=== PATIENT | male | born 1965 | race Caucasian/White ===

== ENCOUNTER 2016-06-12 17:05 | Emergency (ER) | payer OTHER ==
[~2016-06-12] VITALS: Ht 180.3 cm; Wt 107.0 kg
[~2016-06-12 17:05] MED LIST: CITA20 PO; LEXA5TAB PO; NAPR500 PO; RISP1 PO; RISP3 PO
[2016-06-12] MEDS ORDERED: HALOPERIDOL LACTATE 5 MG/ML AMP ONE (17:23)
[2016-06-12] MEDS ORDERED: HALOPERIDOL LACTATE 5 MG/ML AMP IM ONE (17:30)
[2016-06-12] MEDS ORDERED: LORazepam 2 MG/ML VIAL IM ONE (17:30)
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
[2016-06-12 18:19] VITALS: BP 96/55; PULSE 97; RESP 18; TEMP 98; O2SAT 94
[2016-06-12] MEDS ORDERED: diphenhydrAMINE HCL 50 MG/ML VIAL IM ONE (18:30)
[2016-06-12 19:09] LABS: AMPHETAMINE, URINE NEG (NEG); BARBITURATES, URINE NEG (NEG); COCAINE, URINE POS (NEG)
--- NOTE | 2016-06-12 19:18 | RADRPT ---
EXAM DATE/TIME: 06/12/2016 18:49 [facility] COMPARISON: CT BRAIN W/O CONTRAST, April 30, 2015, 22:58. INDICATIONS : Trauma; contusion. RADIATION DOSE: 39.37 CTDIvol (mGy) MEDICAL HISTORY : Drug abuse. SURGICAL HISTORY : None. ENCOUNTER: Initial ACUITY: 1 day PAIN SCALE: 4/10 LOCATION: cranial TECHNIQUE: Multiple contiguous axial images were obtained of the head. Using automated exposure control and adj ustment of the mA and/or kV according to patient size, radiation dose was kept as low as reasonably a chievable to obtain optimal diagnostic quality images. FINDINGS: CEREBRUM: The ventricles are normal for age. No evidence of midline shift, mass lesion, hemorrhage or acute in farction. No extra-axial fluid collections are seen. POSTERIOR FOSSA: The cerebellum and brainstem are intact. The 4th ventricle is midline. The cerebellopontine angle i s unremarkable. EXTRACRANIAL: Mucoperiosteal thickening seen diffusely of the visualized paranasal sinuses, worse. There is a nonac crow fracture of the nose, deviated towards the right. SKULL: The calvaria is intact. No evidence of skull fracture. CONCLUSION: No bleed or other acute intracranial abnormality. Worsening chronic sinusitis. Old nose fracture. Christopher Whalen MD on June 12, 2016 at 19:14 Board Certified Radiologist. This report was verified electronically.
--- NOTE | 2016-06-12 19:22 | RADRPT ---
EXAM DATE/TIME: 06/12/2016 18:49 [facility] COMPARISON: CT CERVICAL SPINE W/O CONTRAST, October 06, 2014, 4:56. INDICATIONS : Trauma; contusion. RADIATION DOSE: 22.34 CTDIvol (mGy) MEDICAL HISTORY : Drug abuse. SURGICAL HISTORY : None. ENCOUNTER: Initial ACUITY: 1 day PAIN SCALE: 3/10 LOCATION: Bilateral neck TECHNIQUE: Volumetric scanning of the cervical spine was performed. Multiplanar reconstructions in the sagittal, coronal and oblique axial planes were performed. Using automated exposure control and adjustment o f the mA and/or kV according to patient size, radiation dose was kept as low as reasonably achievable to obtain optimal diagnostic quality images. FINDINGS: Cervical spine alignment within normal limits. Vertebral bodies have normal height. No cortical break or trabecular disruption. Moderate disc space narrowing with posterior disc osteophyte complex and uncovertebral/facet osteoart hritis again seen at C5/C6 and C6/C7. There is associated foraminal stenosis, mainly on the right at C5/C6. There are mild degenerative changes at the other levels. Juxtavertebral soft tissues are within normal limits. CONCLUSION: No fracture or subluxation of the cervical spine. Degenerative changes are again noted. Please see ab will. Christopher Whalen MD on June 12, 2016 at 19:17 Board Certified Radiologist. This report was verified electronically.
[2016-06-12 19:36] VITALS: BP 103/60; PULSE 68; RESP 18; O2SAT 98
== END 2016-06-12 19:54 ==
LOC: NEPD 17:05
DX: S00.03XA Contusion of scalp, initial encounter (principal); F10.120 Alcohol abuse with intoxication, uncomplicated; F17.200 Nicotine dependence, unspecified, uncomplicated; Z86.59 Personal history of other mental and behavioral disorders; Z86.79 Personal history of other diseases of the circulatory system; Z87.39 Personal history of other diseases of the musculoskeletal system and connective tissue; W22.8XXA Striking against or struck by other objects, initial encounter
CPT/HCPCS: 70450; 72125; 80307; 96372; 99285; J1630

== ENCOUNTER 2017-05-28 23:14 | Emergency (ER) | payer OTHER ==
[~2017-05-28] VITALS: Ht 170.2 cm; Wt 90.0 kg
[2017-05-28 23:25] VITALS: BP 126/64; PULSE 97; RESP 18; TEMP 98.1; O2SAT 96
[2017-05-28] MEDS ORDERED: LEXA10TA PO (23:29)
[2017-05-28] MEDS ORDERED: LEXA5TAB PO (23:29)
[2017-05-28] MEDS ORDERED: RISP1 (23:29)
--- NOTE | 2017-05-29 00:22 | PD ---
HPI . Scanlon Act Chief Complaint: OD/ Ingestion Time Seen by Provider: 23:59 Travel History International Travel<30 days: No Contact w/Intl Traveler<30days: No Traveled to known affect area: No History of Present Illness HPI He took an insignificant amount of Lexapro and Risperdal. He reports that he was trying to kill himself because his girlfriend is in retirement and he cannot visit her. He has a history of drug induced mood disorder. PFSH Past Medical History Hx Anticoagulant Therapy: No Autoimmune Disease: No Bipolar Disorder: Yes Depression: Yes Heart Rhythm Problems: Yes Cardiovascular Problems: No Chemotherapy: No Cerebrovascular Accident: No Diabetes: No Endocrine: No Genitourinary: No Herniated Disk: Yes Immune Disorder: No Musculoskeletal: Yes (BACK AND NECK PROBLEMS) Neurologic: No Psychiatric: Yes Reproductive: No Respiratory: No Immunizations Current: Yes Tetanus Vaccination: Unknown Influenza Vaccination: No Past Surgical History AICD: No Arteriovenous Shunt: No Insulin Pump: No Joint Replacement: No Pacemaker: No Social History Alcohol Use: Yes (4-8 (tall boys) every 2-3 days.) Tobacco Use: Yes (1/2 -1 PACK DAILY) Substance Use: Yes (CRACK) Allergies-Medications (Allergen,Severity, Reaction): Coded Allergies: diatrizoate meglumine (Unverified Allergy, Intermediate, SOB, 09/26/16) gadobenic acid (Unverified Allergy, Intermediate, SOB, 09/26/16) gadodiamide (Unverified Allergy, Intermediate, SOB, 09/26/16) gadoteridol (Unverified Allergy, Intermediate, SOB, 09/26/16) iodixanol (Unverified Allergy, Intermediate, SOB, 09/26/16) iohexol (Unverified Allergy, Intermediate, SOB, 09/26/16) Reported Meds & Prescriptions Reported Meds & Active Scripts Active Reported Risperdal (Risperidone) 1 Mg Tab 1 Mg DAILY Lexapro (Escitalopram Oxalate) 5 Mg Tab 5 Mg PO DAILY Physical Exam Narrative GENERAL: Awake and alert and in no acute distress. SKIN: Warm and dry. HEAD: Normocephalic/atraumatic. EYES: Pupils are equal. Extraocular movements are intact. NECK: Normal range of motion. CARDIOVASCULAR: Regular rate and rhythm. RESPIRATORY: Nonlabored respirations. MUSCULOSKELETAL: Atraumatic. NEUROLOGICAL: Nonfocal. PSYCHIATRIC: He is very jovial for someone suicidal ideation. Data Data Last Documented VS Vital Signs Date Time Temp Pulse Resp B/P (MAP) Pulse Ox O2 Delivery O2 Flow Rate FiO2 05/28/17 23:25 98.1 97 18 126/64 (84) 96 Room Air Orders Orders Complete Blood Count With Diff (05/29/17 00:01) Comprehensive Metabolic Panel (05/29/17 00:01) Thyroid Stimulating Hormone (05/29/17 00:01) Cath For Specimen (05/29/17 00:01) Psych Screen (05/29/17 00:01) Drug Screen, Random Urine (05/29/17 00:01) Labs Laboratory Tests Test 05/29/17 00:17 White Blood Count 8.3 TH/MM3 Red Blood Count 4.81 MIL/MM3 Hemoglobin 15.4 GM/DL Hematocrit 45.3 % Mean Corpuscular Volume 94.3 FL Mean Corpuscular Hemoglobin 32.1 PG Mean Corpuscular Hemoglobin Concent 34.0 % Red Cell Distribution Width 13.6 % Platelet Count 230 TH/MM3 Mean Platelet Volume 7.0 FL Neutrophils (%) (Auto) 61.6 % Lymphocytes (%) (Auto) 30.3 % Monocytes (%) (Auto) 6.4 % Eosinophils (%) (Auto) 1.3 % Basophils (%) (Auto) 0.4 % Neutrophils # (Auto) 5.1 TH/MM3 Lymphocytes # (Auto) 2.5 TH/MM3 Monocytes # (Auto) 0.5 TH/MM3 Eosinophils # (Auto) 0.1 TH/MM3 Basophils # (Auto) 0.0 TH/MM3 CBC Comment DIFF FINAL Differential Comment Blood Urea Nitrogen 5 MG/DL Creatinine 0.72 MG/DL Random Glucose 101 MG/DL Total Protein 6.9 GM/DL Albumin 3.4 GM/DL Calcium Level 8.1 MG/DL Alkaline Phosphatase 72 U/L Aspartate Amino Transf (AST/SGOT) 19 U/L Alanine Aminotransferase (ALT/SGPT) 24 U/L Total Bilirubin 0.2 MG/DL Sodium Level 141 MEQ/L Potassium Level 3.2 MEQ/L Chloride Level 108 MEQ/L Carbon Dioxide Level 22.3 MEQ/L Anion Gap 11 MEQ/L Estimat Glomerular Filtration Rate 115 ML/MIN Thyroid Stimulating Hormone 3rd Gen 1.180 uIU/ML Urine Opiates Screen NEG Urine Barbiturates Screen NEG Urine Amphetamines Screen NEG Urine Benzodiazepines Screen NEG Urine Cocaine Screen POS Urine Cannabinoids Screen NEG MDM Medical Decision Making Medical Screen Exam Complete: Yes Emergency Medical Condition: Yes Medical Record Reviewed: Yes (Medical history of substance induced mood disorder.) Differential Diagnosis Differential diagnosis includes but is not limited to depression with suicidal gesture, suicide attempt, suicidal ideation, attention seeking behavior. Narrative Course This patient presents to us as a Scanlon Act following and insignificant suicide attempt. Medical clearance exam is in process. CBC & BMP Diagram 05/29/17 00:17 Total Protein 6.9, Albumin 3.4, Calcium Level 8.1 L, Alkaline Phosphatase 72, Aspartate Amino Transf (AST/SGOT) 19, Alanine Aminotransferase (ALT/SGPT) 24, Total Bilirubin 0.2 Drug screen is positive for cocaine Diagnosis Primary Impression: Cocaine use Additional Impressions: Medical clearance for psychiatric admission Hypokalemia Condition: Stable Keely Arizmendi MD May 29, 2017 00:22
[2017-05-29 01:03] LABS: AUTOMATED NEUTROPHIL # 5.1 TH/MM3 (1.8-7.7); BASOPHIL % 0.4 % (0.0-2.0); EOSINOPHIL # 0.1 TH/MM3 (0-0.4); EOSINOPHIL % 1.3 % (0.0-4.0); HEMATOCRIT 45.3 % (39.0-51.0); HEMOGLOBIN 15.4 GM/DL (13.0-17.0); LYMPH % 30.3 % (9.0-44.0); LYMPHOCYTE # 2.5 TH/MM3 (1.0-4.8); MEAN CELL VOLUME 94.3 FL (80.0-100.0); MEAN CORPUSCULAR HEMOGLOBIN 32.1 PG (27.0-34.0); MONO % 6.4 % (0.0-8.0); MONOCYTE # 0.5 TH/MM3 (0-0.9); NEUT % 61.6 % (16.0-70.0); PLATELET COUNT 230 TH/MM3 (150-450); RED BLOOD COUNT 4.81 MIL/MM3 (4.50-5.90); RED CELL DISTRIBUTION WIDTH 13.6 % (11.6-17.2); WHITE BLOOD COUNT 8.3 TH/MM3 (4.0-11.0)
[2017-05-29 01:58] LABS: ALBUMIN 3.4 GM/DL (3.4-5.0); ALKALINE PHOSPHATASE 72 U/L (45-117); ALT (GPT) 24 U/L (12-78); AST (GOT) 19 U/L (15-37); BLOOD UREA NITROGEN 5 MG/DL (7-18); CALCIUM 8.1 MG/DL (8.5-10.1); CREATININE 0.72 MG/DL (0.60-1.30); GLOMERULAR FILTRATION RATE 115 ML/MIN (>89); GLUCOSE,RANDOM 101 MG/DL (74-106); TOTAL BILIRUBIN ADULT 0.2 MG/DL (0.2-1.0); TOTAL PROTEIN 6.9 GM/DL (6.4-8.2)
[2017-05-29 01:59] LABS: BICARBONATE 22.3 MEQ/L (21.0-32.0); CHLORIDE 108 MEQ/L (98-107); SODIUM (NA) 141 MEQ/L (136-145)
[2017-05-29] MEDS ORDERED: POTASSIUM CHLORIDE 20 MEQ CONTROLLED RELEASE TAB PO ONE (02:15)
[2017-05-29 02:27] VITALS: BP 118/78; PULSE 79; RESP 18; O2SAT 99
[2017-05-29 04:45] VITALS: BP 135/70; PULSE 78; RESP 16; O2SAT 98
[2017-05-29 07:48] VITALS: BP 116/72; PULSE 82; RESP 18; TEMP 98; O2SAT 97
[2017-05-29 17:35] VITALS: BP 118/85; PULSE 56; RESP 18; TEMP 97.2; O2SAT 98
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
--- NOTE | 2017-05-29 18:40 | PD ---
Physical Exam Time Seen by Provider: 18:38 RACHEAL Killian has evaluated patient, lifted the Scanlon act and cleared the patient for discharge. Data Data Last Documented VS Vital Signs Date Time Temp Pulse Resp B/P (MAP) Pulse Ox O2 Delivery O2 Flow Rate FiO2 05/29/17 10:40 05/29/17 07:48 98.0 82 18 97 Room Air Orders Orders Complete Blood Count With Diff (05/29/17 00:01) Comprehensive Metabolic Panel (05/29/17 00:01) Thyroid Stimulating Hormone (05/29/17 00:01) Cath For Specimen (05/29/17 00:01) Psych Screen (05/29/17 00:01) Drug Screen, Random Urine (05/29/17 00:01) Potassium Chloride (Kcl) (05/29/17 02:15) Diet Regular Basic (05/29/17 Breakfast) Diet Regular Basic (05/29/17 Lunch) Diet Regular Basic (05/29/17 Dinner) Labs Laboratory Tests Test 05/29/17 00:17 White Blood Count 8.3 TH/MM3 Red Blood Count 4.81 MIL/MM3 Hemoglobin 15.4 GM/DL Hematocrit 45.3 % Mean Corpuscular Volume 94.3 FL Mean Corpuscular Hemoglobin 32.1 PG Mean Corpuscular Hemoglobin Concent 34.0 % Red Cell Distribution Width 13.6 % Platelet Count 230 TH/MM3 Mean Platelet Volume 7.0 FL Neutrophils (%) (Auto) 61.6 % Lymphocytes (%) (Auto) 30.3 % Monocytes (%) (Auto) 6.4 % Eosinophils (%) (Auto) 1.3 % Basophils (%) (Auto) 0.4 % Neutrophils # (Auto) 5.1 TH/MM3 Lymphocytes # (Auto) 2.5 TH/MM3 Monocytes # (Auto) 0.5 TH/MM3 Eosinophils # (Auto) 0.1 TH/MM3 Basophils # (Auto) 0.0 TH/MM3 CBC Comment DIFF FINAL Differential Comment Blood Urea Nitrogen 5 MG/DL Creatinine 0.72 MG/DL Random Glucose 101 MG/DL Total Protein 6.9 GM/DL Albumin 3.4 GM/DL Calcium Level 8.1 MG/DL Alkaline Phosphatase 72 U/L Aspartate Amino Transf (AST/SGOT) 19 U/L Alanine Aminotransferase (ALT/SGPT) 24 U/L Total Bilirubin 0.2 MG/DL Sodium Level 141 MEQ/L Potassium Level 3.2 MEQ/L Chloride Level 108 MEQ/L Carbon Dioxide Level 22.3 MEQ/L Anion Gap 11 MEQ/L Estimat Glomerular Filtration Rate 115 ML/MIN Thyroid Stimulating Hormone 3rd Gen 1.180 uIU/ML Urine Opiates Screen NEG Urine Barbiturates Screen NEG Urine Amphetamines Screen NEG Urine Benzodiazepines Screen NEG Urine Cocaine Screen POS Urine Cannabinoids Screen NEG MDM Supervised Visit with GILDARDO: No Narrative Course RACHEAL Uribe has evaluated patient, lifted the Scanlon act and cleared the patient for discharge. Patient contracts safety. Denies suicidal or homicidal ideations. Patient will be provided community resource packet to [facility] for follow-up. Has friends and family for support. Patient was medically cleared by alternate provider prior to psych screening. Patient has been evaluated by psychiatry and and is now cleared for discharge. Diagnosis Primary Impression: Cocaine use Additional Impressions: Drug-induced mood disorder Hypokalemia Referrals: [facility] (Out patient) [facility] Primary Care Physician Psychiatrist Daniela CAMEJO Behavioral Patient Instructions: Cocaine Abuse (ED), General Instructions, Mood Disorders (ED), Polysubstance Abuse (ED) Additional Instruction: Contract safety to your self and others Follow-up with psychiatry Follow-up with primary care provider Follow-up with Darrion Doyle Return to the emergency department immediately with worsening of symptoms Med/Other Pt SpecificInfo: No Change to Meds, No Meds Exist/No RX given Disposition: 01 DISCHARGE HOME Condition: Stable Nicole Downs May 29, 2017 18:40
== END 2017-05-29 18:50 | disposition home or self-care (01) ==
LOC: NEPE 23:14 → NEPJ 05-29 18:50
DX: F14.94 Cocaine use, unspecified with cocaine-induced mood disorder (principal); E87.6 Hypokalemia; F31.9 Bipolar disorder, unspecified; F17.210 Nicotine dependence, cigarettes, uncomplicated
CPT/HCPCS: 80053; 80307; 84443; 85025; 99283

== ENCOUNTER 2017-07-15 20:19 | Emergency (ER) | payer SELFPAY ==
[~2017-07-15 20:19] MED LIST changes: -CITA20 PO; -NAPR500 PO; +RISP1; -RISP1 PO; -RISP3 PO
[2017-07-15 20:31] VITALS: BP 111/68; PULSE 96; RESP 20; TEMP 98; O2SAT 95
--- NOTE | 2017-07-15 21:01 | PD ---
HPI Chief Complaint: Cold / Flu Symptoms Time Seen by Provider: 20:31 Travel History International Travel<30 days: No Contact w/Intl Traveler<30days: No Traveled to known affect area: No History of Present Illness HPI The patient is a 52 year old male who presents to the [facility] emergency department with a history of cough and congestion that is been present for the last 3-4 weeks. He reports that his cough has been productive of yellow sputum. The patient is brought in by ambulance services reporting chest pain. The patient reports that the pain is in the center of his chest over sternum. The patient began to complain of chest pain when he was placed under arrest prior to arrival. The patient in route to this facility was belligerent and apparently spitting at the police officer booking as well as the paramedics that responded to the call. The patient on arrival has a mask over his face because he continues to spit regularly. He is also belligerent, cursing at the staff on my arrival to the room. The patient reports that he has been experiencing a subjective fever and chills. He denies having any shortness of breath. The patient's history and review of systems are somewhat limited due to his agitation and uncooperative state. The patient's other history is obtained from reviewing the electronic medical record. [facility] Past Medical History Narrative Medical The patient's past medical history is significant for bipolar disorder, schizophrenia, chronic neck and back pain. Hx Anticoagulant Therapy: No Autoimmune Disease: No Bipolar Disorder: Yes Depression: Yes Heart Rhythm Problems: Yes Cardiovascular Problems: No Chemotherapy: No Cerebrovascular Accident: No Diabetes: No Endocrine: No Genitourinary: No Herniated Disk: Yes Immune Disorder: No Musculoskeletal: Yes (BACK AND NECK PROBLEMS) Neurologic: No Psychiatric: Yes Reproductive: No Respiratory: No Immunizations Current: Yes Past Surgical History Narrative Surgical The patient's past surgical history is significant for a circumcision AICD: No Arteriovenous Shunt: No Insulin Pump: No Joint Replacement: No Pacemaker: No Social History Alcohol Use: Yes (10-15 beers per week) Tobacco Use: Yes (1/2 -1 PACK DAILY) Substance Use: Yes (1 ppd cigarettes, 60 oz. beer every other day, crack 2x/ week) Allergies-Medications (Allergen,Severity, Reaction): Coded Allergies: diatrizoate meglumine (Unverified Allergy, Intermediate, SOB, 8/15/17) gadobenic acid (Unverified Allergy, Intermediate, SOB, 09/26/16) gadodiamide (Unverified Allergy, Intermediate, SOB, 09/26/16) gadoteridol (Unverified Allergy, Intermediate, SOB, 09/26/16) iodixanol (Unverified Allergy, Intermediate, SOB, 09/26/16) iohexol (Unverified Allergy, Intermediate, SOB, 09/26/16) Reported Meds & Prescriptions Reported Meds & Active Scripts Active Cefuroxime (Cefuroxime Axetil) 500 Mg Tab 500 Mg PO BID 10 Days Reported Risperdal (Risperidone) 1 Mg Tab 1 Mg DAILY Lexapro (Escitalopram Oxalate) 5 Mg Tab 5 Mg PO DAILY Review of Systems Except as stated in HPI: all other systems reviewed are Neg General / Constitutional: No: Fever Eyes: No: Visual changes HENT: Positive: Rhinorrhea, Congestion, No: Headaches Cardiovascular: Positive: Chest Pain or Discomfort, No: Dyspnea on exertion Respiratory: Positive: Cough, No: Shortness of Breath Gastrointestinal: No: Nausea, Vomiting, Diarrhea, Abdominal Pain Genitourinary: No: Dysuria Musculoskeletal: No: Pain Skin: No Rash Neurologic: No: Weakness, Focal Abnormalities, Change in Mentation, Slurred Speech, Sensory Disturbance Psychiatric: No: Depression Endocrine: No: Polydipsia Hematologic/Lymphatic: No: Easy Bruising Physical Exam Narrative General: The patient is a well-developed well-nourished male in no acute distress. The patient has a mask on and repeatedly keeps spitting into the mask. Patient's sputum appears to be clear. Head and Neck exam: Head is normocephalic atraumatic. Eyes: EOMI, pupils are equal round and reactive to light. Nose: Midline septum with pink mucous membranes Mouth: Dentition unremarkable. Moist mucus membranes. Posterior oropharynx is not erythematous. No tonsillar hypertrophy. Uvula midline. Airway patent. Neck: No palpable lymphadenopathy. No nuchal rigidity. No thyromegaly. Cardiovascular: Regular rate and rhythm without murmurs, gallops, or rubs. No pulse deficit to the extremities on simultaneous auscultation and palpation of his radial artery. The patient reports having chest wall tenderness on palpation along the sternal borders. There is no crepitus or step-off. No erythema or ecchymosis. Lungs: Clear to auscultation bilaterally. No wheezes, rhonchi, or rales. Abdomen: Soft, without tenderness to palpation in all 4 quadrants of the abdomen. No guarding, rebound, or rigidity. Normal bowel sounds are audible. No tenderness on palpation of McBurney's point. Negative Soto sign. Extremities: No clubbing, cyanosis, or edema. 2+ pulses in all 4 extremities. No calf tenderness on palpation. Back: No spinous process tenderness to palpation. No costovertebral angle tenderness to palpation. Neurologic Exam: Grossly nonfocal. Skin Exam: No rash noted. Intact skin that is warm and dry. Data Data Last Documented VS Vital Signs Date Time Temp Pulse Resp B/P (MAP) Pulse Ox O2 Delivery O2 Flow Rate FiO2 07/15/17 20:31 98.0 96 20 111/68 (82) 95 Orders Orders Electrocardiogram (07/15/17 20:33) Complete Blood Count With Diff (07/15/17 20:33) Comprehensive Metabolic Panel (07/15/17 20:33) Creatine Kinase (Cpk) (07/15/17 20:33) Ckmb (Isoenzyme) Profile (07/15/17 20:33) Troponin I (07/15/17 20:33) Prothrombin Time / Inr (Pt) (07/15/17 20:33) Act Partial Throm Time (Ptt) (07/15/17 20:33) Lipase (07/15/17 20:33) Urinalysis - C+S If Indicated (07/15/17 20:33) Chest, Single Ap (07/15/17 20:33) Iv Access Insert/Monitor (07/15/17 20:33) Ecg Monitoring (07/15/17 20:33) Oximetry (07/15/17 20:33) Drug Screen, Random Urine (07/15/17 20:33) Alcohol (Ethanol) (07/15/17 20:33) Azithromycin (Zithromax) (07/15/17 22:30) Ceftriaxone Inj (Rocephin Inj) (07/15/17 23:00) Labs Laboratory Tests Test 07/15/17 20:35 White Blood Count 10.2 TH/MM3 Red Blood Count 4.80 MIL/MM3 Hemoglobin 15.5 GM/DL Hematocrit 46.0 % Mean Corpuscular Volume 95.8 FL Mean Corpuscular Hemoglobin 32.3 PG Mean Corpuscular Hemoglobin Concent 33.8 % Red Cell Distribution Width 13.6 % Platelet Count 263 TH/MM3 Mean Platelet Volume 7.2 FL Neutrophils (%) (Auto) 64.1 % Lymphocytes (%) (Auto) 27.9 % Monocytes (%) (Auto) 6.2 % Eosinophils (%) (Auto) 1.2 % Basophils (%) (Auto) 0.6 % Neutrophils # (Auto) 6.5 TH/MM3 Lymphocytes # (Auto) 2.9 TH/MM3 Monocytes # (Auto) 0.6 TH/MM3 Eosinophils # (Auto) 0.1 TH/MM3 Basophils # (Auto) 0.1 TH/MM3 CBC Comment DIFF FINAL Differential Comment Prothrombin Time 9.9 SEC Prothromb Time International Ratio 1.0 RATIO Activated Partial Thromboplast Time 24.0 SEC Blood Urea Nitrogen 5 MG/DL Creatinine 0.92 MG/DL Random Glucose 97 MG/DL Total Protein 7.0 GM/DL Albumin 3.6 GM/DL Calcium Level 8.3 MG/DL Alkaline Phosphatase 74 U/L Aspartate Amino Transf (AST/SGOT) 20 U/L Alanine Aminotransferase (ALT/SGPT) 32 U/L Total Bilirubin 0.5 MG/DL Sodium Level 141 MEQ/L Potassium Level 3.4 MEQ/L Chloride Level 106 MEQ/L Carbon Dioxide Level 22.1 MEQ/L Anion Gap 13 MEQ/L Estimat Glomerular Filtration Rate 87 ML/MIN Total Creatine Kinase 81 U/L Troponin I LESS THAN 0.02 NG/ML Lipase 243 U/L Ethyl Alcohol Level 201 MG/DL MDM Medical Decision Making Medical Screen Exam Complete: Yes Emergency Medical Condition: Yes Medical Record Reviewed: Yes Differential Diagnosis Pneumonia, versus bronchitis, versus costochondritis, versus pleurisy, versus acute coronary syndrome Narrative Course During the course of the patient's emergency department visit, the patient's history, examination, and differential diagnosis were reviewed with the patient. The patient was placed on a compliance monitor with oximetry and frequent blood pressure monitoring. The patient had IV access obtained and blood work sent for analysis. The patient had an EKG done on arrival. The patient's EKG shows a sinus rhythm heart rate of 94, QRS duration 101 ms. QTc is [address] segment elevation is noted. The patient's laboratory studies were reviewed and remarkable for a CBC that is within normal limits, CMP is remarkable for potassium of 3.4, BUN 5, GFR of 87, calcium 8.3, cardiac enzymes within normal limits, lipase 243. PT 9.9, PTT 24, alcohol level 201 per Radiology studies were reviewed and remarkable for chest x-ray that shows no acute cardiopulmonary disease. Given the patient's prolonged productive cough, the patient will be treated with antibiotic for bronchitis. Initially it was written for the patient to receive Zithromax, however as it does appear to interact with the patient's psychiatric medication this was changed to Rocephin 1 g IV. The patient will be discharged into police custody with a prescription for Ceftin to be continued over the next 10 days. The patient is resting comfortably and feels better, is alert and in no distress. The patient's results and examination findings were discussed with the patient. The repeat examination is unremarkable and benign. The history, exam, diagnostic testing, and current condition do not suggest any significant pathology to warrant further testing, continued ED treatment, admission, or surgical evaluation at this point. The vital signs have been stable. The patient does not have uncontrollable pain, intractable vomiting, or other significant symptoms. The patient's condition is stable and appropriate for discharge. The patient will pursue further outpatient evaluation with a primary care physician or other designated or consulting physician as indicated in the discharge instructions. The patient is instructed to report back to the emergency department immediately for reexamination in the mean time if he develops any new or worsening signs or symptoms. The patient expressed understanding and was agreeable with this plan. Diagnosis Primary Impression: Bronchitis Additional Impression: Chest wall pain Referrals: [facility] 3 days Patient Instructions: Acute Bronchitis (ED), Chest Wall Pain (ED), General Instructions Med/Other Pt SpecificInfo: Prescription(s) given Scripts Cefuroxime (Cefuroxime) 500 Mg Tab 500 MG PO BID for Infection for 10 Days, #20 TAB 0 Refills Prov: Toshia Bailon MD 07/15/17 Disposition: [address] LAW ENFORCEMNT Condition: Stable Toshia Bailon MD Jul 15, 2017 21:01
--- NOTE | 2017-07-15 21:18 | RADRPT ---
EXAM DATE: 07/15/2017 9:00 PM EDT AGE/SEX: 52 years / Male INDICATIONS: Chest pain. CLINICAL DATA: This is the patient's initial encounter. Patient reports that signs and symptoms have been present for 3 days and indicates a pain score of 10/10. MEDICAL/SURGICAL HISTORY: . Drug abuse. None. COMPARISON: [facility] [place], CHEST SINGLE AP, 10/06/2014. . FINDINGS: A single AP view of the chest demonstrates the lungs to be symmetrically aerated without evidence of mass, infiltrate or effusion. The cardiomediastinal contours are unremarkable. Osseous structures a re intact. CONCLUSION: Negative examination. Electronically signed by: James Lynch MD 07/15/2017 9:17 PM EDT
[2017-07-15 21:26] LABS: AUTOMATED NEUTROPHIL # 6.5 TH/MM3 (1.8-7.7); BASOPHIL # 0.1 TH/MM3 (0-0.2); BASOPHIL % 0.6 % (0.0-2.0); EOSINOPHIL # 0.1 TH/MM3 (0-0.4); EOSINOPHIL % 1.2 % (0.0-4.0); HEMOGLOBIN 15.5 GM/DL (13.0-17.0); LYMPH % 27.9 % (9.0-44.0); LYMPHOCYTE # 2.9 TH/MM3 (1.0-4.8); MEAN CELL VOLUME 95.8 FL (80.0-100.0); MEAN CORPUSCULAR HEMOGLOBIN 32.3 PG (27.0-34.0); MEAN CORPUSCULAR HGB CONC 33.8 % (32.0-36.0); MEAN PLATELET VOLUME 7.2 FL (7.0-11.0); MONO % 6.2 % (0.0-8.0); MONOCYTE # 0.6 TH/MM3 (0-0.9); NEUT % 64.1 % (16.0-70.0); PLATELET COUNT 263 TH/MM3 (150-450); RED CELL DISTRIBUTION WIDTH 13.6 % (11.6-17.2); WHITE BLOOD COUNT 10.2 TH/MM3 (4.0-11.0)
[2017-07-15 21:30] LABS: PROTHROMBIN TIME - PATIENT 9.9 SEC (9.8-11.6)
[2017-07-15 21:42] LABS: ALBUMIN 3.6 GM/DL (3.4-5.0); AST (GOT) 20 U/L (15-37); BICARBONATE 22.1 MEQ/L (21.0-32.0); BLOOD UREA NITROGEN 5 MG/DL (7-18); CALCIUM 8.3 MG/DL (8.5-10.1); CHLORIDE 106 MEQ/L (98-107); CREATININE 0.92 MG/DL (0.60-1.30); GLOMERULAR FILTRATION RATE 87 ML/MIN (>89); GLUCOSE,RANDOM 97 MG/DL (74-106); SODIUM (NA) 141 MEQ/L (136-145)
[2017-07-15 21:48] LABS: ALKALINE PHOSPHATASE 74 U/L (45-117); ALT (GPT) 32 U/L (12-78); TOTAL BILIRUBIN ADULT 0.5 MG/DL (0.2-1.0); TROPONIN I LESS THAN 0.02 NG/ML (0.02-0.05)
[2017-07-15] MEDS ORDERED: AZITHROMYCIN 250 MG TAB PO ONE (22:30)
[2017-07-15] MEDS ORDERED: CEFU1TAB20 PO (22:42)
[2017-07-15] MEDS ORDERED: cefTRIAXone INJ 1,000 MG in SODIUM CHLORIDE 0.9% INJ 100 ML IV ONE (23:00)
[2017-07-15 23:11] VITALS: BP 104/61; PULSE 86; RESP 18; O2SAT 99
--- NOTE | 2017-07-16 09:37 | EKG ---
Date Performed: 07/15/2017 Time Performed: 20:38:07 PTAGE: 52 years EKG: Sinus rhythm NORMAL ECG PREVIOUS TRACING 10/06/2014 04.20 Since the previous tracing, no significant change noted DOCTOR: Demarcus Tan Interpretating Date/Time 07/16/2017 09:35:15
== END 2017-07-16 00:36 ==
LOC: NEPC 20:19
DX: J40 Bronchitis, not specified as acute or chronic (principal); R07.89 Other chest pain; F31.9 Bipolar disorder, unspecified; F17.200 Nicotine dependence, unspecified, uncomplicated; Z88.8 Allergy status to other drugs, medicaments and biological substances; Z79.899 Other long term (current) drug therapy
CPT/HCPCS: 71045; 80053; 80307; 82550; 83690; 84484; 85025; 85610; 85730; 93005; 96374; 99285; J0696